=== PATIENT | female | born 1985 | race African-American/Black ===

== ENCOUNTER 2018-07-24 22:56 | Emergency (ER) | payer SELFPAY ==
[~2018-07-24] VITALS: Ht 157.5 cm; Wt 55.3 kg
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
== END 2018-07-25 00:41 | disposition home or self-care (01) ==
LOC: FSED 22:56
DX: S00.531A Contusion of lip, initial encounter (principal); V43.52XA Car driver injured in collision with other type car in traffic accident, initial encounter; Y92.488 Other paved roadways as the place of occurrence of the external cause
CPT/HCPCS: 70486; 99283

== ENCOUNTER 2025-02-02 14:23 | Emergency (ER) | payer MEDICARE ==
[~2025-02-02] VITALS: Ht 157.5 cm; Wt 68.0 kg
[~2025-02-02 14:23] MED LIST: MELOXICAM7.5 MG PO; PREDNISONE5 MG PO
[2025-02-02 14:51] VITALS: PULSE 100; RESP 19; TEMP 97.7; O2SAT 100
[2025-02-02 15:24] LABS: BASOPHILS % 0.1 % (0.0-1.0); HEMATOCRIT 37.5 % (34.2-44.1); HEMOGLOBIN 12.4 g/dL (12.0-16.0); LYMPHOCYTES # (AUTO) 0.7 (1.0-3.2); LYMPHOCYTES % 7.5 % (18.0-39.1); MEAN CORPUSCULAR HEMOGLOBIN 29.7 pg (28-32); MEAN CORPUSCULAR HGB CONC 33.1 g/dL (31-35); MEAN CORPUSCULAR VOLUME 89.9 fL (81-99); MONOCYTES # (AUTO) 0.3 (0.2-0.8); MONOCYTES % 2.7 % (4.4-11.3); NEUTROPHILS # (AUTO) 8.4 (2.1-6.9); NEUTROPHILS % 89.4 % (38.7-80.0); PLATELET COUNT 296 x10e3/uL (140-360); RED BLOOD COUNT 4.17 x10e6/uL (3.6-5.1); RED CELL DISTRIBUTION WIDTH 12.5 % (11.7-14.4); WHITE BLOOD COUNT 9.34 x10e3/uL (4.8-10.8)
[2025-02-02] MEDS: METHYLPREDNISOLONE ACETATE 80 MG/ML VIAL IM ONE (15:53)
[2025-02-02] MEDS: KETOROLAC TROMETHAMINE 30 MG/ML VIAL IV STA (15:53)
[2025-02-02 15:54] LABS: ALBUMIN 3.4 g/dL (3.5-5.0); ALBUMIN/GLOBULIN RATIO 0.7 (0.8-2.0); ANION GAP 18.4 mmol/L (8-16); BILIRUBIN,TOTAL 0.3 mg/dL (0.2-1.2); CALCIUM 9.4 mg/dL (8.4-10.2); CREATININE, SERUM 0.72 mg/dL (0.57-1.11); TOTAL PROTEIN 8.5 g/dL (6.5-8.1)
[2025-02-02 16:01] LABS: POTASSIUM 3.4 mmol/L (3.5-5.1)
[2025-02-02] MEDS: TRAMADOL HCL 50 MG TAB PO ONE (16:32)
== END 2025-02-02 18:03 | disposition home or self-care (01) ==
LOC: ER 14:58
DX: M06.9 Rheumatoid arthritis, unspecified (principal); I10 Essential (primary) hypertension; E11.65 Type 2 diabetes mellitus with hyperglycemia
CPT/HCPCS: 36415; 80053; 82550; 85025; 99284; J1040; J1885

== ENCOUNTER 2025-02-09 16:45 | Emergency (ER) | payer MEDICARE ==
[~2025-02-09] VITALS: Ht 157.5 cm; Wt 62.3 kg
[2025-02-09] MEDS: ONDANSETRON HCL INJ 2MG/ML 2ML 2 MG/ML VIAL IV ONE (17:53)
[2025-02-09] MEDS: SODIUM CHLORIDE 0.9% 1000ML 1,000 ML IV STA (17:53)
[2025-02-09] MEDS: FAMOTIDINE 20 MG/2 ML VIAL IV ONE (17:53)
[2025-02-09] MEDS: KETOROLAC TROMETHAMINE 30 MG/ML VIAL IV STA (17:54)
[2025-02-09] MEDS: DEXAMETHASONE SOD PHOS INJ 4 MG/ML SDV IV ONE (17:57)
[2025-02-09] MEDS: INSULIN REGULAR, HUMAN 100 UNIT/1 ML IV ONE (17:57)
[2025-02-09] MEDS ORDERED: TYLENOL325 MG PO (18:05)
[2025-02-09] MEDS ORDERED: KETOROLAC TROME10 MG PO (18:05)
[2025-02-09 19:18] VITALS: PULSE 82; RESP 18; TEMP 98; O2SAT 97
== END 2025-02-09 19:20 | disposition home or self-care (01) ==
LOC: FSED 16:50
DX: I06.9 Rheumatic aortic valve disease, unspecified (principal); M06.9 Rheumatoid arthritis, unspecified; E11.65 Type 2 diabetes mellitus with hyperglycemia; I10 Essential (primary) hypertension
CPT/HCPCS: 36415; 80053; 81003; 81025; 82948; 85025; 96374; 96375; 99284; J1100; J1885; J2405; J7030

== ENCOUNTER 2025-05-02 12:14 | Emergency (ER) | payer MEDICARE ==
[~2025-05-02] VITALS: Ht 157.5 cm; Wt 68.9 kg
[~2025-05-02 12:14] MED LIST changes: +KETOROLAC TROME10 MG PO; +TYLENOL325 MG PO
[2025-05-02] MEDS ORDERED: AMLODIPINE BESYL5 MG PO (12:23)
[2025-05-02 12:25] VITALS: TEMP 98.4
[2025-05-02] MEDS: KETOROLAC TROMETHAMINE 60 MG/2 ML VIAL IM ONE (13:07)
[2025-05-02 13:29] VITALS: PULSE 83; RESP 16
[2025-05-02 13:32] VITALS: BP 162/96; O2SAT 96
[2025-06-09] MEDS ORDERED: KETOROLAC TROME10 MG PO (15:39)
[2025-06-09] MEDS ORDERED: ULTRAM 50MG50 MG PO (15:39)
== END 2025-05-02 13:35 | disposition home or self-care (01) ==
LOC: FSED 12:25
DX: M25.551 Pain in right hip (principal); M06.9 Rheumatoid arthritis, unspecified; M79.0 Rheumatism, unspecified; I10 Essential (primary) hypertension; E11.9 Type 2 diabetes mellitus without complications
CPT/HCPCS: 73502; 99283; J1885

== ENCOUNTER 2025-08-03 12:18 | Emergency (ER) | payer MEDICARE ==
[~2025-08-03] VITALS: Ht 157.5 cm; Wt 67.6 kg
[~2025-08-03 12:18] MED LIST changes: +AMLODIPINE BESYL5 MG PO; +ULTRAM 50MG50 MG PO
[2025-08-03 12:30] VITALS: PULSE 105; RESP 16; TEMP 98.1; O2SAT 97
[2025-08-03] MEDS ORDERED: HYDROCODON-ACE1 EA11 PO (12:54)
== END 2025-08-03 13:17 | disposition home or self-care (01) ==
LOC: FSED 12:54
DX: M79.642 Pain in left hand (principal); M79.641 Pain in right hand; M25.562 Pain in left knee; M25.561 Pain in right knee; W01.0XXA Fall on same level from slipping, tripping and stumbling without subsequent striking against object, initial encounter; Y93.01 Activity, walking, marching and hiking; Y92.89 Other specified places as the place of occurrence of the external cause; I10 Essential (primary) hypertension; E11.9 Type 2 diabetes mellitus without complications; M06.9 Rheumatoid arthritis, unspecified
CPT/HCPCS: 99284